=== PATIENT | female | born 1950 | race African-American/Black ===

== ENCOUNTER → 2017-04-23 | Outpatient (CLI) | payer OTHER | END | disposition home or self-care (01) | LOC: US 07:30 | DX: N28.89 Other specified disorders of kidney and ureter (principal); R80.8 Other proteinuria | CPT/HCPCS: 76770 ==

== ENCOUNTER 2018-05-07 08:16 | Emergency (ER) | payer OTHER ==
[~2018-05-07] VITALS: Ht 160 cm; Wt 63.5 kg
[~2018-05-07 08:16] MED LIST: ALBU2.5V8 IH; ASPI-482 PO; ATOR40TA59 PO; FLUT1DIS3 IH; IPRA3AMP29 IH; LISI1TAB5 PO; OXYB5TAB7 PO; PANT40TA5 PO
[2018-05-07 08:20] VITALS: BP 150/69
--- NOTE | 2018-05-07 08:52 | RAD ---
4 view study left knee Clinical indications: Left knee pain after fall FINDINGS: No acute fracture or dislocation or osteolytic process is seen. No joint effusion is seen. IMPRESSION: No acute fracture. Electronically signed by: Dong Kellogg MD (05/07/2018 8:49 AM) [facility]
[2018-05-07] MEDS ORDERED: DICL50TA4 PO (09:23)
--- NOTE | 2018-05-07 09:23 | PHYS DOC ---
Past Medical History Past Medical History: COPD, Hypertension, Other Additional Past Medical Histor: overactive bladder Past Surgical History: Hysterectomy, Other Additional Past Surgical Histo: right foot surgery Alcohol Use: Occasionally Drug Use: None Adult General Chief Complaint Chief Complaint: KNEE INJURY HPI HPI Patient is a 68 year old female with history of hypertension, COPD, who presents to the ED today complaining of 10 out of 10 left knee pain that began yesterday after she fell at her friend's house landing on her left knee. Patient denies any loss of consciousness. She states her feet got tangled up prior to her falling. Patient describes the pain as throbbing and intermittent. She states the pain is worse on weight-bearing that she is able to ambulate with no difficulties. She states she has not taken anything for her pain. Review of Systems Review of Systems Constitutional: Denies fever or chills [] Musculoskeletal: Reports left knee pain Integument: Denies rash or skin lesions [] Neurologic: Denies headache, focal weakness or sensory changes All other systems were reviewed and found to be within normal limits, except as documented in this note. Allergies Allergies Allergies Coded Allergies Type Severity Reaction Last Updated Verified mirabegron Allergy Intermediate RASH 04/10/15 Yes Physical Exam Physical Exam Constitutional: Well developed, well nourished, no acute distress, non-toxic appearance. [] Skin: Warm, dry, no erythema, no rash. [] Back: No tenderness, no CVA tenderness. [] Extremities: Left knee with no obvious deformity. Slight bruising noted on the left lateral knee. Full range of motion to the left knee, no laxity, negative Kathryn sign, negative Salvador sign, negative anterior-posterior drawer sign. + 2 left pedal pulse. Cap refill less than 2 seconds left lower extremity. Sensation intact to the left lower extremity Neurologic: Alert and oriented X 3, normal motor function, normal sensory function, no focal deficits noted. [] Psychologic: Affect normal, judgement normal, mood normal. [] Current Patient Data Vital Signs Vital Signs Date Time Temp Pulse Resp B/P (MAP) Pulse Ox O2 Delivery O2 Flow Rate FiO2 05/07/18 08:20 98.0 98 17 150/69 (96) 98 Room Air 98.0 EKG EKG [] Radiology/Procedures Radiology/Procedures []PROCEDURE: KNEE LEFT 4V 4 view study left knee Clinical indications: Left knee pain after fall FINDINGS: No acute fracture or dislocation or osteolytic process is seen. No joint effusion is seen. IMPRESSION: No acute fracture. Electronically signed by: Juan Carlos Kellogg MD (05/07/2018 8:49 AM) [facility] DICTATED and SIGNED BY: JUAN CARLOS KELLOGG MD DATE: 05/07/18 0847 Course & Med Decision Making Course & Med Decision Making Pertinent Labs and Imaging studies reviewed. (See chart for details) This is a 68-year-old female patient presenting to the ED with left knee pain status post falling, left knee x-rays interpreted by radiologist are negative for any acute findings. Discharged with diclofenac. Ice elevation encouraged. Follow-up with orthopedic doctor in one week if pain continues. Dragon Disclaimer Dragon Disclaimer This electronic medical record was generated, in whole or in part, using a voice recognition dictation system. Departure Departure Impression: Primary Impression: Fall from standing Additional Impression: Contusion of left knee Disposition: HOME, SELF-CARE Condition: STABLE Referrals: ROJAS RUIZ PA-C (PCP) Follow-up with your own doctor in 1-2 weeks FIOR LIN MD follow up in 1 week Patient Instructions: Contusion, Qucm-ad-Jyft, Knee Pain, Txfj-ao-Wxtx Additional Instructions: You were evaluated in the emergency room for left knee pain. Ice elevate the extremity. Take the prescribed medication as needed for pain. Follow-up with your own doctor or the orthopedic doctor provided in one week. Scripts Diclofenac Sodium (DICLOFENAC SODIUM) 50 Mg Tablet.dr 1 TAB PO BID, #10 TAB 0 Refills Prov: TIFFANIE PENA APRN 05/07/18 Problem Qualifiers Primary Impression: Fall from standing Encounter type: initial encounter Qualified Codes: W19.XXXA - Unspecified fall, initial encounter Additional Impression: Contusion of left knee Encounter type: initial encounter Qualified Codes: S80.02XA - Contusion of left knee, initial encounter TIFFANIE PENA APRN May 07, 2018 09:23
== END 2018-05-07 09:30 | disposition home or self-care (01) ==
LOC: ER 08:16
DX: S80.02XA Contusion of left knee, initial encounter (principal); I10 Essential (primary) hypertension; J44.9 Chronic obstructive pulmonary disease, unspecified; Z90.710 Acquired absence of both cervix and uterus; Z88.8 Allergy status to other drugs, medicaments and biological substances; W18.39XA Other fall on same level, initial encounter; Y93.89 Activity, other specified; Y92.89 Other specified places as the place of occurrence of the external cause; Y99.8 Other external cause status
CPT/HCPCS: 73564; 99283

== ENCOUNTER → 2018-06-24 | Outpatient (CLI) | payer OTHER ==
[~2018-06-24] MED LIST changes: +AMLO10TA8 PO; +DICL50TA4 PO; +ICOS1CAP PO; +METF10007 PO; +METO25TA4 PO; +PRAS10TA9 PO; +REGADENOSON 0.4 MG/5 ML DISP.SYRIN. IV ONE
--- NOTE | 2018-06-24 13:23 | RAD ---
MR#: [id number] Date of Study: 06/24/2018 Ordering Physician: LETICIA KAMARA, Referring Physician: JACK SMALLS Tech: RT Chong (R) (N) APPROVED REPORT Test Type: Pharmacological Stress Nurse/Tech: Kerrie Erickson RN Test Indications: ventricular arrythmia Cardiac History: Hypertension, smoker, Diabetes Medications: See Electronic Medical Record Medical History: See Electronic Medical Record Resting ECG: NSR Resting Heart Rate: 80 bpm Resting Blood Pressure: 119/65mmHg Pretest Chest Pain: NoneNo chest pain Nurse/Tech Notes LS clear, S1S2 Consent: The procedure was explained to the patient in lay terms. Informed consent was witnessed. Christiano eout was entered into [employer]. History and Stress Test performed by Kerrie Erickson RN Pharm. Details Pharmacologic stress testing was performed using 0.4mg per 5ml of regadenoson given intravenously ove r 7-10 seconds. Stress Symptoms Flushing, Dyspnea, Abdominal pain, starting 10 to 5, to 2 POST EXERCISE Reason for Termination: Infusion complete Max HR: 118 bpm Max Blood Pressure: 135/65mmHg Chest Pain: No. Arrhythmia: No. ST Change: No. INTERPRETATION Stress EKG Conclusion: Baseline EKG showed sinus rhythm. No ischemic changes at peak stress. No arr hythmias. Imaging Protocol IMAGE PROTOCOL: Rest Tc-99m/stress Tc-99m 1 day Rest: Stress: Viability: Radiopharm.Tc99m ImubdgxidSm27s Sestamibi Dose10.5mCi 33mCi Duration 13min. 13min. Img Date 06/24/2018 06/24/2018 Inj-Img Moza55nxu. 60min. Rest Admin Site:IV - Right HandAdministrator:RT Silvio Schwarz)(N) Stress Admin Site: IV - Right HandAdministrator: AVINASH Tinsley STRESS DATA End Diast. Vol.44.0mlLVEDV index BSA27.0ml End Syst. Vol.2.0mlLVESV index BSA1.0ml Myocardial Mass83.0gEject. Bxyslvob54.0% Stress Scores Regional WT0.00Summed WT0.00 Regional WM0.00Summed WM0.00 Study quality was good. Left Ventricular size was Normal at Rest and Stress. Lung uptake was . Left Ventricular ejection fraction is >80%. The rest and stress images show normal perfusion, normal contraction and thickening. LV Perf. Quant 17 Seg. SSS0.00 17 Seg. SRS0.00 17 Seg. SDS0.00 Stress Defect Extent (% LAD)0.00Rest Defect Extent (% LAD)0.00Rev. Defect Extent (% LAD)0.00 Stress Defect Extent (% LCX) 0.00Rest Defect Extent (% LCX)0.00Rev. Defect Extent (% LCX)0.00 Stress Defect Extent (% RCA)0.00Rest Defect Extent (% RCA)0.00Rev. Defect Extent (% RCA)0.00 Stress Defect Extent (% JOSEPH)0.00Rest Defect Extent (% JOSEPH)0.00Rev. Defect Extent (% JOSEPH)0.00 Conclusion 1. Regadenoson cardioisotope stress test did not show any evidence of ischemia or infarct. 2. Normal left ventricular systolic function with ejection fraction calculated at >80%. 3. Low risk for cardiac events. Signed by : Brock Guadalupe, Electronically Approved : 06/24/2018 13:23:08
== END | disposition home or self-care (01) ==
LOC: NM 08:02
PROVIDERS: ATTEND Nurse Practitioner
DX: I49.9 Cardiac arrhythmia, unspecified (principal); I10 Essential (primary) hypertension; E11.9 Type 2 diabetes mellitus without complications; Z87.891 Personal history of nicotine dependence
CPT/HCPCS: 78452; 93017; A9500; J2785

== ENCOUNTER → 2018-07-23 | Outpatient (CLI) | payer OTHER ==
[~2018-07-23] MED LIST changes: -REGADENOSON 0.4 MG/5 ML DISP.SYRIN. IV ONE
--- NOTE | 2018-07-23 09:48 | CARD ---
MR#: [id number] Date of Study: 07/23/2018 Ordering Physician: MOR MESA, Referring Physician: MOR MESA Tech: Lydia Gilmore RDCS APPROVED REPORT EXAM: Two-dimensional and M-mode echocardiogram with Doppler and color Doppler. Other Information Quality : AverageHR: 70bpm Rhythm : NSRTechnically limited study due to smoking. INDICATION Syncope 2D DIMENSIONS RVDd2.9 (2.9-3.5cm)Left Atrium(2D)3.2 (1.6-4.0cm) IVSd1.1 (0.7-1.1cm)Aortic Root(2D)2.9 (2.0-3.7cm) LVDd3.9 (3.9-5.9cm)LVOT Diameter1.9 (1.8-2.4cm) PWd0.9 (0.7-1.1cm)LVDs2.3 (2.5-4.0cm) FS (%) 41.2 %SV48.8 ml LVEF(%)70.0 (>50%) Aortic Valve AoV Peak Clifford.103.4cm/sAoV VTI20.7cm AO Peak GR.4.3mmHgLVOT Peak Clifford.99.6cm/s AO Mean GR.2mmHgAVA (VMAX)2.86cm2 PATRICK (VTI)2.90cm2 Mitral Valve MV E Gqiabbhg01.4cm/sMV DECEL VBJE016zz MV A Knvekkei039.6cm/sE/A Ratio0.8 Pulmonary Valve PV Peak Hzhzivvd51.3cm/s Tricuspid Valve TR P. Rgeyjfam779xz/sRAP YGHNKLIP6zmGi TR Peak Gr.65xzGvSSMS44muTn LEFT VENTRICLE The left ventricle is normal size. There is normal left ventricular wall thickness. The left ventricu lar systolic function is normal and the ejection fraction is within normal range. The Ejection Fracti on is 65-70%. There is normal LV segmental wall motion. Transmitral Doppler flow pattern is Grade I-a bnormal relaxation pattern. RIGHT VENTRICLE The right ventricle is normal size. There is normal right ventricular wall thickness. The right ventr icular systolic function is normal. ATRIA The left atrium size is normal. The right atrium size is normal. The interatrial septum is intact wit h no evidence for an atrial septal defect or patent foramen ovale as noted on 2-D or Doppler imaging. AORTIC VALVE The aortic valve is normal in structure and function. The aortic valve is trileaflet. Doppler and Col or Flow revealed no significant aortic regurgitation. There is no significant aortic valvular stenosi s. There is no aortic valvular vegetation. MITRAL VALVE The mitral valve is normal in structure and function. There is no evidence of mitral valve prolapse. There is no mitral valve stenosis. Doppler and Color-flow revealed trace mitral regurgitation. TRICUSPID VALVE The tricuspid valve is normal in structure and function. Doppler and Color Flow revealed trace tricus pid regurgitation. The PA pressure was estimated at 29 mmHg. There is no tricuspid valve prolapse or vegetation. There is no tricuspid valve stenosis. PULMONIC VALVE The pulmonic valve is not well visualized. GREAT VESSELS The aortic root is normal in size. The ascending aorta is normal in size. The IVC is normal in size a nd collapses >50% with inspiration. PERICARDIAL EFFUSION There is no evidence of significant pericardial effusion. Critical Notification Critical Value: No <Conclusion> The left ventricular systolic function is normal and the ejection fraction is within normal range. Th e Ejection Fraction is 65-70%. There is normal LV segmental wall motion. Technically difficult study Signed by : Aris Ramirez, Electronically Approved : 07/23/2018 09:47:55
== END | disposition home or self-care (01) ==
LOC: ECHO 08:35
PROVIDERS: ATTEND Internal Medicine Cardiovascular Disease
DX: R55 Syncope and collapse (principal)
CPT/HCPCS: 93306

== ENCOUNTER 2018-08-13 06:50 | Outpatient (CLI) | payer OTHER ==
[2018-08-13] VITALS (21 sets, daily range): BP systolic 105–144; BP diastolic 59–89
[~2018-08-13] VITALS: Ht 160 cm; Wt 56.2 kg
[~2018-08-13 06:50] MED LIST changes: -AMLO10TA8 PO; -ICOS1CAP PO; -METF10007 PO; -METO25TA4 PO; -PANT40TA5 PO; +PANT40TA77 PO; -PRAS10TA9 PO
[2018-08-13 07:25] LABS: HEMATOCRIT 38.2 % (36.0-47.0); HEMOGLOBIN 12.6 g/dL (12.0-15.5); RED BLOOD COUNT 4.1 x10^6/uL (3.50-5.40); RED CELL DISTRIBUTION WIDTH 13.1 % (11.5-14.5)
[2018-08-13 07:39] LABS: PROTHROMBIN TIME PATIENT 11.5 SEC (11.7-14.0)
[2018-08-13] MEDS ORDERED: IODIXANOL 320 MG/ML 100 ML VIAL. ONE (07:44)
[2018-08-13] MEDS ORDERED: LIDOCAINE 1% PF 2 ML VIAL. ONE (07:44)
[2018-08-13] MEDS ORDERED: METF10007 PO (07:47)
[2018-08-13 07:53] LABS: CALCIUM 9.9 mg/dL (8.5-10.1); CREATININE 0.8 mg/dL (0.6-1.0); GFR 86.8; POTASSIUM 3.9 mmol/L (3.5-5.1)
[2018-08-13] MEDS ORDERED: ICOS1CAP PO (07:54)
[2018-08-13] MEDS ORDERED: METO25TA4 PO (07:54)
[2018-08-13] MEDS ORDERED: AMLO10TA8 PO (07:54)
[2018-08-13] MEDS ORDERED: MIDAZOLAM HCL/PF 2 MG/2 ML VIAL. ONE (08:38)
[2018-08-13] MEDS ORDERED: fentaNYL PF VIAL 100 MCG/2 ML VIAL ONE (08:38)
[2018-08-13] MEDS ORDERED: HEPARIN for IV BOLUS 10,000 UNIT/10 ML VIAL. ONE (08:38)
[2018-08-13] MEDS ORDERED: VERAPAMIL 5 MG/2 ML VIAL. ONE (08:38)
[2018-08-13] MEDS ORDERED: NITROGLYCERIN 200 MCG/2 ML SYRINGE FOR CATH/VASC LAB. ONE (08:39)
[2018-08-13] MEDS ORDERED: BIVALIRUDIN 250 MG VIAL. IV ONE ×2 (08:58→09:15)
[2018-08-13] MEDS ORDERED: IODIXANOL 320 MG/ML 100 ML VIAL. IART ONE (09:15)
[2018-08-13] MEDS ORDERED: HEPARIN for IV BOLUS 10,000 UNIT/10 ML VIAL. IART ONE (09:15)
[2018-08-13] MEDS ORDERED: NITROGLYCERIN 200 MCG/2 ML SYRINGE FOR CATH/VASC LAB. IART ONE (09:15)
[2018-08-13] MEDS ORDERED: MIDAZOLAM HCL/PF 2 MG/2 ML VIAL. IV ONE (09:15)
[2018-08-13] MEDS ORDERED: fentaNYL PF VIAL 100 MCG/2 ML VIAL IV ONE (09:15)
[2018-08-13] MEDS ORDERED: VERAPAMIL 5 MG/2 ML VIAL. IART ONE (09:15)
[2018-08-13] MEDS ORDERED: LIDOCAINE 1% PF 2 ML VIAL. INJ ONE (09:15)
[2018-08-13] MEDS ORDERED: PRASUGREL 10 MG TABLET. PO ONE (09:15)
[2018-08-13] MEDS ORDERED: ASPIRIN 325 MG TABLET PO ONE (09:15)
[2018-08-13] MEDS ORDERED: ASPIRIN 325 MG TABLET ONE (09:17)
[2018-08-13] MEDS ORDERED: PRASUGREL 10 MG TABLET. ONE (09:18)
--- NOTE | 2018-08-13 09:23 | PDOC ---
MODERATE SEDATION ASSESSMENT RISKS/ALTERNATIVES Risks/Alternatives Risks and alternatives of this type of sedation and procedure discussed with: RISK/ALTERNATIVES: Patient H & P ON CHART H & P H & P on chart and reviewed for co-morbid conditions and appropriate labs. H&P ON CHART: Yes STATUS PREG STATUS ASSESSED: N/A MEDS/ALLERGIES REVIEWED Meds/Allergies Reviewed Medications and Allergies including time and route of recently administered narcotics and sedatives. MEDS/ALLERGIES REVIEWED: Yes ASA RATING ASA RATING: II AIRWAY ASSESSMENT Airway Assessment Airway patency, oral function limitations, presence of caps, crowns, dentures, partials, and ability to extend neck assessed. AIRWAY ASSESSMENT: Yes MALLAMPATI SCORE MALLAMPATI SCORE: II PRE-SEDATION ASSESSMENT PRE-SEDATION ASSESSMENT: Yes MOR MESA MD Aug 13, 2018 09:23
[2018-08-13] MEDS ORDERED: IV 1/2 NORMAL SALINE 1,000 ML IV SCH (09:24)
[2018-08-13] MEDS ORDERED: ACETAMINOPHEN 325 MG TABLET. PO PRN (09:30)
[2018-08-13] MEDS ORDERED: NITROGLYCERIN SUBLINGUAL 0.4 MG BOTTLE OF 25. SL PRN (09:30)
[2018-08-13] MEDS ORDERED: 0.9 % SODIUM CHLORIDE 10 ML DISP.SYRIN. IV PRN (09:30)
--- NOTE | 2018-08-13 09:37 | CARD ---
MR#: [id number] Date of Study: 08/13/2018 Ordering Physician: MOR MESA, Referring Physician: MOR MESA Tech: RT Jovani (R) APPROVED REPORT Technologist: Winnie Perez RT (R) Procedure(s) performed: 1. Left heart catheterization, selective coronary angiography and left ventr iculography via right transradial approach 2. Successful PCI/drug eluting stent placement to right coronary artery Fluoro time: 8.1 minutes Dose: 78Nzue7 Contrast: 120 cc Moderate sedation: 25 Minutes INDICATION The indication(s) include : Ventricular tachycardia. CSHA Clinical Frailty Scale CSHA Clinical Frailty Scale: Well Heart Failure Heart Failure: No PROCEDURE NARRATIVE After explaining the risks, benefits and alternative options, informed consent was obtained from lars ent. Patient was brought to the cardiac [facility] and right wrist was prepped and draped in the usual fashion after confirming a positive modified George's test. Arterial access was obtained in the righ t radial artery and a 6 Venezuelan sheath was inserted. 6 Venezuelan Fred catheter was used to perform artemio ective angiography of the left and right coronary arteries. 6 Venezuelan pigtail catheter was used to pe rform left ventriculography. The following findings were noted. FINDINGS 1. Hemodynamics: Left ventricular end-diastolic pressure of 20 mmHg. No pullback gradient across th e aortic valve. 2. Left ventriculography: Hyperdynamic left ventricle systolic function with ejection fraction great er than 80%. No significant mitral regurgitation seen. 3. Coronary angiography: a. The left main coronary artery arose from the left sinus of Valsalva, gave rise to the left anteri or descending and left circumflex arteries and did not show any significant stenosis. b. The left anterior descending artery did not show any significant stenosis. c. The left circumflex artery did not show any significant stenosis. d. The right coronary artery was a large and dominant vessel arising from the right sinus of Valsalv a that showed 80% stenosis in the mid to distal segment. INTERVENTION The right coronary artery was engaged with a 6 Venezuelan JR4 guide catheter and the stenosis in the mid to distal segment was crossed with a 0.014 inch Diet TV Pro water guidewire. This was predilated with a 3.0 x 12 mm trek balloon following which this was successfully treated with a 3.5 x 15 mm Xience Alp ine drug-eluting stent. Follow-up angiography showed resolution of the stenosis to 0% with ELMER-3 dis anthony flow. Patient tolerated the procedure well. Hemostasis was achieved using TR band. There were no immediate complications. ELMER Flow ELMER Flow (Pre-Intervention): ELMER-3 ELMER Flow (Post-Intervention): ELMER-3 Conclusion 1. Severe single-vessel coronary disease involving right coronary artery 2. Successful PCI/drug eluting stent placement to the right coronary artery 3. Hyperdynamic left ventricle systolic function with ejection fraction greater than 80% Recommendations 1. Aspirin 325 mg daily for one month followed by 81 mg daily 2. Effient 10 mg daily for preferably one year 3. Cardiovascular risk factor modification Signed by : Mor Mesa, Electronically Approved : 08/13/2018 09:36:26
--- NOTE | 2018-08-13 11:52 | NUR ---
Effient 10mg po daily #30 called into [facility] [address] Patient educated the need to take this medicine daily to cardiac stent that was placed today. Patient verbalized understanding.
[2018-08-13] MEDS ORDERED: PRAS10TA9 PO (13:55)
--- NOTE | 2018-08-13 14:24 | NUR ---
Discharge Note: MAEVE COOK Discharge instructions and discharge home medications reviewed with Patient and a copy given. All questions have been answered and understanding verbalized. The following instructions and handouts were given: moderate sedation and radial site care, emphasized importance of picking up Effient prescription and holding Metformin until Thursday Discontinued lines and drains: Peripheral IV intact. Patient discharged to Home or Self Care withSignificant Othervia Ambulated Patient's prescription for Effient had to be called into [facility] [address] because [facility] didn't have the medication right now.
[2018-08-14] MEDS ORDERED: ASPIRIN ENTERIC COATED 325 MG TABLET.DR. PO SCH (08:00)
[2018-08-14] MEDS ORDERED: PRASUGREL 10 MG TABLET. PO SCH (08:00)
== END 2018-08-13 14:00 | disposition home or self-care (01) ==
LOC: CCL 06:50
PROVIDERS: ATTEND Internal Medicine Cardiovascular Disease
DX: I25.10 Atherosclerotic heart disease of native coronary artery without angina pectoris (principal); J44.9 Chronic obstructive pulmonary disease, unspecified; I10 Essential (primary) hypertension; E78.5 Hyperlipidemia, unspecified; F17.210 Nicotine dependence, cigarettes, uncomplicated; E11.9 Type 2 diabetes mellitus without complications; I47.2 Ventricular tachycardia; Z79.82 Long term (current) use of aspirin; Z87.39 Personal history of other diseases of the musculoskeletal system and connective tissue; Z90.710 Acquired absence of both cervix and uterus; Z90.722 Acquired absence of ovaries, bilateral; Z72.89 Other problems related to lifestyle; Z79.84 Long term (current) use of oral hypoglycemic drugs
CPT/HCPCS: 36415; 80048; 85027; 85610; 93458; 99152; 99153; C1725; C1769; C1874; C1887; C1892; C9600; J0583; J1644; J2250; J3010; J3490; Q9967; 92928; C1713

== ENCOUNTER → 2018-11-12 | Outpatient (CLI) | payer OTHER, MEDICARE ==
[2018-08-13 13:50] VITALS: BP 123/67
[~2018-11-12] MED LIST changes: +AMLO10TA8 PO; +ICOS1CAP PO; +LISI1TAB19 PO; -LISI1TAB5 PO; +METF10007 PO; +METO25TA4 PO; +PRAS10TA9 PO
[2018-11-12 10:06] LABS: BASO # 0.1 x10^3/uL (0.0-0.2); BASO % 1 % (0-3); EOS # 0.2 x10^3/uL (0.0-0.7); EOS % 2 % (0-3); HEMATOCRIT 34.4 % (36.0-47.0); HEMOGLOBIN 11.5 g/dL (12.0-15.5); LYMPH # 2.5 x10^3/uL (1.0-4.8); LYMPH % 27 % (24-48); MEAN CORPUSCULAR HEMOGLOBIN 32 pg (25-35); MEAN CORPUSCULAR HGB CONC 33 g/dL (31-37); MEAN CORPUSCULAR VOLUME 95 fL (79-100); MONO # 0.6 x10^3/uL (0.0-1.1); MONO % 6 % (0-9); NEUT % 65 % (31-73); PLATELET COUNT 212 x10^3/uL (140-400); RED BLOOD COUNT 3.63 x10^6/uL (3.50-5.40); RED CELL DISTRIBUTION WIDTH 13.7 % (11.5-14.5); WHITE BLOOD COUNT 9.3 x10^3/uL (4.0-11.0)
[2018-11-12 10:24] LABS: ALBUMIN 3.9 g/dL (3.4-5.0); CALCIUM 9.4 mg/dL (8.5-10.1); CREATININE 0.9 mg/dL (0.6-1.0); GFR 75.8; PHOSPHORUS 4.6 mg/dL (2.6-4.7); POTASSIUM 4.7 mmol/L (3.5-5.1)
[2018-11-13 02:08] LABS: CREATININE PTH 0.85 mg/dL (0.57-1.00); PHOSPHORUS PTH 4.7 mg/dL (2.5-4.5); PTH INTACT 71 pg/mL (15-65)
== END | disposition home or self-care (01) ==
LOC: LAB 09:39
PROVIDERS: ATTEND Internal Medicine Nephrology
DX: I10 Essential (primary) hypertension (principal); R80.9 Proteinuria, unspecified; E11.21 Type 2 diabetes mellitus with diabetic nephropathy; Z72.0 Tobacco use
CPT/HCPCS: 36415; 80069; 83970; 85025

== ENCOUNTER 2019-03-05 09:42 | Emergency (ER) | payer OTHER, MEDICAID ==
[2018-08-13 13:50] VITALS: BP 123/67
[~2019-03-05] VITALS: Ht 160 cm; Wt 55.8 kg
[~2019-03-05 09:42] MED LIST changes: +OXYB5TAB10 PO; -OXYB5TAB7 PO
[2019-03-05] MEDS ORDERED: HYDR-3164 PO (10:34)
[2019-03-05] MEDS ORDERED: METH4TAB2 PO (10:34)
[2019-03-05] MEDS ORDERED: GABA300C18 PO (10:34)
--- NOTE | 2019-03-05 10:35 | PHYS DOC ---
Past Medical History Past Medical History: COPD, Hypertension, Other Additional Past Medical Histor: overactive bladder (TIFFANIE PENA APRN) Past Surgical History: Hysterectomy, Other Additional Past Surgical Histo: right foot surgery (TIFFANIE PENA APRN) Alcohol Use: Occasionally Drug Use: None (TIFFANIE PENA APRN) Adult General Chief Complaint Chief Complaint: SKIN PROBLEM HPI HPI Patient is a 68 year old female with history of COPD, hypertension, who presents to the ED today complaining of pain from shingles. She's had shingles for 4 weeks. Patient rates the pain as moderate. Denies anything specifically exacerbating or relieving the pain. Describes the pain as a burning sensation. (TIFFANIE PENA APRN) Review of Systems Review of Systems Constitutional: Denies fever or chills [] Musculoskeletal: Denies back pain or joint pain [] Integument: Reports pain to the flank region from shingles Neurologic: Denies headache, focal weakness or sensory changes [] All other systems were reviewed and found to be within normal limits, except as documented in this note. (TIFFANIE PENA APRN) Allergies Allergies Allergies Coded Allergies Type Severity Reaction Last Updated Verified mirabegron Allergy Intermediate RASH 04/10/15 Yes (MICHAEL ELIZABETH DO) Physical Exam Physical Exam Constitutional: Well developed, well nourished, no acute distress, non-toxic appearance. [] Abdomen: Bowel sounds normal, soft, no tenderness, no masses, no pulsatile masses. [] Skin: Elijah lesions noted on the left flank region on the left mid and lower abdomen consistent with healing shingles. No signs of infection. Back: No tenderness, no CVA tenderness. [] Extremities: No tenderness, no cyanosis, no clubbing, ROM intact, no edema. [] Neurologic: Alert and oriented X 3, normal motor function, normal sensory function, no focal deficits noted. [] Psychologic: Affect normal, judgement normal, mood normal. [] (TIFFANIE PENA APRN) Current Patient Data Vital Signs Vital Signs Date Time Temp Pulse Resp B/P (MAP) Pulse Ox O2 Delivery O2 Flow Rate FiO2 03/05/19 10:00 98.9 88 18 138/60 (86) 98 Room Air 98.9 (MICHAEL ELIZABETH DO) EKG EKG [] (TIFFANIE PENA APRN) Radiology/Procedures Radiology/Procedures [] (TIFFANIE PENA APRN) Course & Med Decision Making Course & Med Decision Making Pertinent Labs and Imaging studies reviewed. (See chart for details) This is a 68-year-old female patient presented to the ED today with pain from shingles. She's had shingles for 4 weeks. Lesions appear to be improving she was given prescription for gabapentin , Medrol Dosepak and hydrocodone. Follow-up with [facility] in 1-2 weeks. (TIFFANIE PENA APRN) Dragon Disclaimer Dragon Disclaimer This electronic medical record was generated, in whole or in part, using a voice recognition dictation system. (TIFFANIE PENA APRN) Departure Departure Impression: Primary Impression: Acute pain associated with herpes zoster Disposition: HOME, SELF-CARE Condition: STABLE Referrals: UNKNOWN PCP NAME (PCP) Follow-up with your doctor on March 12 as scheduled Patient Instructions: Shingles, Debd-dx-Whlj Additional Instructions: You were evaluated in the emergency room for shingles pain. This is not unusual. This pain can last for weeks. Use the prescribed medications as ordered and follow-up with your doctor on March 12 as scheduled. Scripts Hydrocodone/Apap 5-325 (NORCO 5-325 TABLET) 1 Each Tablet 1 TAB PO Q6HRS, #30 TAB Prov: TIFFANIE PENA APRN 03/05/19 Methylprednisolone (MEDROL) 4 Mg Tab.ds.pk 1 PKG PO UD, #1 PKG Prov: TIFFANIE PENA APRN 03/05/19 Gabapentin (GABAPENTIN ) 300 Mg Capsule 300 MG PO TID for NEUROGENIC PAIN, #30 CAP Prov: TIFFANIE PENA APRN 03/05/19 Attending Signature Attending Signature I have reviewed the PA/[facility]URB[facility] ROOM ATTENDANT's note and plan of care. I was available for consultation as needed during the patient's visit in the emergency department. I agree with the clinical impression, plan, and disposition. (MICHAEL ELIZABETH DO) TIFFANIE PENA APRN Mar 05, 2019 10:35 MICHAEL ELIZABETH DO Mar 05, 2019 17:42
== END 2019-03-05 10:52 | disposition home or self-care (01) ==
LOC: ER 09:42
DX: B02.8 Zoster with other complications (principal); R10.30 Lower abdominal pain, unspecified; I10 Essential (primary) hypertension; J44.9 Chronic obstructive pulmonary disease, unspecified; Z90.710 Acquired absence of both cervix and uterus; Z88.8 Allergy status to other drugs, medicaments and biological substances
CPT/HCPCS: 99283

== ENCOUNTER → 2019-09-08 | Outpatient (CLI) | payer OTHER, MEDICAID ==
[2019-03-05 10:00] VITALS: BP 138/60
[~2019-09-08] MED LIST changes: +GABA300C18 PO; +HYDR-3164 PO; -LISI1TAB19 PO; +LISI1TAB37 PO; +METH4TAB2 PO
--- NOTE | 2019-09-08 12:18 | CARD ---
MR#: [id number] Date of Study: 09/08/2019 Ordering Physician: MOR MESA, Referring Physician: MOR MESA, Tech: Malika Peoplesantonella APPROVED REPORT EXAM: Two-dimensional and M-mode echocardiogram with Doppler and color Doppler. Other Information Quality : AverageHR: 64bpm INDICATION COPD Cardiac Disease: CAD RISK FACTORS Hypertension Hyperlipidemia Diabetes Smoking 2D DIMENSIONS RVDd3.3 (2.9-3.5cm)Left Atrium(2D)2.9 (1.6-4.0cm) IVSd0.8 (0.7-1.1cm)Aortic Root(2D)3.0 (2.0-3.7cm) LVDd4.0 (3.9-5.9cm)LVOT Diameter1.9 (1.8-2.4cm) PWd1.1 (0.7-1.1cm)LVDs2.2 (2.5-4.0cm) FS (%) 45.0 %SV52.7 ml LVEF(%)76.9 (>50%) Aortic Valve AoV Peak Clifford.124.9cm/sAoV VTI25.3cm AO Peak GR.6.2mmHgLVOT Peak Clifford.114.9cm/s LVOT VTI 25.07cmAO Mean GR.3mmHg PATRICK (VMAX)2.36wj7NAC (VTI)2.72cm2 Mitral Valve MV E Mimszdsg50.0cm/sMV DECEL ALXO700pa MV A Zsidvfkv75.9cm/sMV E Mean Gr.2mmHg MV TVX82saR/A Ratio0.9 MVA (PHT)3.27cm2 TDI E/Lateral E'8.4E/Medial E'11.8 Pulmonary Valve PV Peak Pzfwkrlg59.2cm/sPV Peak Grad.3mmHg Tricuspid Valve TR P. Mguzrvdy105si/sRAP ZYSOEVQA0ahBe TR Peak Gr.88fnGhBHYM80wzRh Pulmonary Vein S1 Pcaneoqa57.3cm/sD2 Fcldztzk12.4cm/s PVa zrykwbzd86hcio LEFT VENTRICLE The left ventricle is normal size. There is borderline concentric left ventricular hypertrophy. The l eft ventricular systolic function is normal. The Ejection Fraction is 55-60%. There is normal LV segm ental wall motion. Transmitral Doppler flow pattern is Grade I-abnormal relaxation pattern. RIGHT VENTRICLE The right ventricle is normal size. There is normal right ventricular wall thickness. The right ventr icular systolic function is normal. ATRIA The left atrium size is normal. The right atrium size is normal. The interatrial septum is intact wit h no evidence for an atrial septal defect or patent foramen ovale as noted on 2-D or Doppler imaging. AORTIC VALVE The aortic valve is thickened but opens well. Doppler and Color Flow revealed no significant aortic r egurgitation. There is no significant aortic valvular stenosis. Calculated aortic valve area is 2.65 cm2 with maximum pressure gradient of 8 mmHg and mean pressure gradient of 4 mmHg. MITRAL VALVE The mitral valve is normal in structure and function. There is no evidence of mitral valve prolapse. There is no mitral valve stenosis. Doppler and Color-flow revealed trace mitral regurgitation. TRICUSPID VALVE The tricuspid valve is normal in structure and function. Doppler and Color Flow revealed trace tricus pid regurgitation with an estimated PAP of 30 mmHg. There is no tricuspid valve stenosis. PULMONIC VALVE The pulmonic valve is not well visualized. Doppler and Color Flow revealed trace pulmonic valvular re gurgitation. GREAT VESSELS The aortic root is normal in size. The IVC is normal in size and collapses >50% with inspiration. PERICARDIAL EFFUSION There is no evidence of significant pericardial effusion. Critical Notification Critical Value: No <Conclusion> The left ventricular systolic function is normal. The Ejection Fraction is 55-60%. There is normal LV segmental wall motion. Trace mitral regurgitation. Trace tricuspid regurgitation with an estimated PAP of 30 mmHg. There is no evidence of significant pericardial effusion. Signed by : Mor Mesa, Electronically Approved : 09/08/2019 12:17:53
== END | disposition home or self-care (01) ==
LOC: ECHO 09:39
PROVIDERS: ATTEND Internal Medicine Cardiovascular Disease
DX: I25.10 Atherosclerotic heart disease of native coronary artery without angina pectoris (principal); I51.7 Cardiomegaly; E11.9 Type 2 diabetes mellitus without complications; F17.200 Nicotine dependence, unspecified, uncomplicated
CPT/HCPCS: 93306

== ENCOUNTER → 2020-02-14 | Outpatient (CLI) | payer OTHER, MEDICAID ==
[2019-03-05 10:00] VITALS: BP 138/60
[~2020-02-14] MED LIST changes: +AMLO-187 PO; -AMLO10TA8 PO
--- NOTE | 2020-02-14 11:29 | KCIC ---
EXAM: KNEE LEFT 3V 02/14/2020 12:00 AM CLINICAL INDICATION:Acute left anterior knee pain, fall 3 weeks ago COMPARISON:Left knee radiograph 05/07/2018 TECHNIQUE:3 views of the left knee FINDINGS:No acute fracture. Alignment is normal. Joint spaces are maintained. No joint effusion or focal soft tissue abnormality. IMPRESSION:No acute osseous abnormality. Electronically signed by: Sonia Hawkins MD (02/14/2020 11:26 AM) [id number]
== END ==
LOC: KCIC 10:27
PROVIDERS: ATTEND Family Medicine
DX: M25.562 Pain in left knee (principal)
CPT/HCPCS: 73562

== ENCOUNTER → 2020-02-20 | Outpatient (CLI) | payer OTHER, MEDICAID ==
[2019-03-05 10:00] VITALS: BP 138/60
--- NOTE | 2020-02-20 11:08 | KCIC ---
MRI left knee without contrast dated 02/20/2020. No comparison available. CLINICAL INDICATION: Left knee pain. TECHNIQUE: Routine multiplanar multisequence MR imaging left knee was performed. No contrast administered. FINDINGS: Bone marrow signal is homogeneous. No marrow edema. Mild tricompartmental hypertrophic changes. Mild thinning and surface irregularity of the articular cartilage. No significant joint effusion. No loose body. Tiny popliteal cyst. Anterior cruciate and posterior cruciate ligaments intact. Medial and lateral collateral complexes in tact. The iliotibial band, popliteus tendon and pes anserine complex within normal limits. Quadriceps and patellar tendon are intact. No abnormality of the medial or lateral retinaculum. Both menisci are normal in morphology and signal. No articular surface tear or para meniscal cyst. IMPRESSION: 1. No evidence of internal derangement. 2. Mild tricompartmental degenerative change and chondromalacia. 3. Small joint effusion and tiny popliteal cyst. Electronically signed by: Santi Carolina MD (02/20/2020 11:06 AM) [id number]
== END ==
LOC: KCIC MRI 09:40
PROVIDERS: ATTEND Family Medicine
DX: M17.12 Unilateral primary osteoarthritis, left knee (principal); M71.22 Synovial cyst of popliteal space [Baker], left knee; M25.462 Effusion, left knee; M94.262 Chondromalacia, left knee
CPT/HCPCS: 73721

== ENCOUNTER → 2020-03-21 | Outpatient (CLI) | payer OTHER, MEDICAID ==
[2019-03-05 10:00] VITALS: BP 138/60
[~2020-03-21] MED LIST changes: +REGADENOSON 0.4 MG/5 ML DISP.SYRIN. IV ONE
--- NOTE | 2020-03-22 08:20 | RAD ---
MR#: [id number] Date of Study: 03/21/2020 Ordering Physician: MOR MESA, Referring Physician: JACK CASTANEDA Tech: Sirisha Aparicio RT (R) (N) APPROVED REPORT Test Type: Pharmacological Stress Nurse/Tech: Junior Camacho RN Test Indications: CAD Cardiac History: Cardiac Stent in 2018, HTN, See EMR. Medications: See EMR. Medical History: DM, Asthma/COPD, Smoker, See EMR. Resting ECG: SR Resting Heart Rate: 73 bpm Resting Blood Pressure: 141/77mmHg Pretest Chest Pain: No chest pain Nurse/Tech Notes Lungs with crackles throughout, Heart tones regular. Consent: The procedure was explained to the patient in lay terms. Informed consent was witnessed. Christiano eout was entered into [employer]. History and Stress Test performed by PELON Castro, SARAH (R) (N) Pharm. Details Pharmacologic stress testing was performed using 0.4mg per 5ml of regadenoson given intravenously ove r 7-10 seconds. Stress Symptoms No chest pain or symptoms. POST EXERCISE Reason for Termination: Infusion complete Max HR: 106 bpm Max Blood Pressure: 153/92mmHg Blood Pressure response to exercise: Normal blood pressure response during stress. Heart Rate response to exercise: WNL Chest Pain: No. Arrhythmia: No. ST Change: No. INTERPRETATION Stress EKG Conclusion: No evidence of stress induced EKG changes. Imaging Protocol IMAGE PROTOCOL: Rest Tc-99m/stress Tc-99m 1 day Rest: Stress: Viability: Radiopharm.Tc99m [id number] Sestamibi Dose10.4mCi 30mCi Duration 15min. 10min. Img Date 03/21/2020 03/21/2020 Inj-Img [id number]. 60min. Rest Admin Site:IV - Right HandAdministrator:PELON Castro ARRT (Ki)(N) Stress Admin Site: IV - Right HandAdministrator: PELON Castro ARRT (Ki)(N) STRESS DATA End Diast. Vol.60.0mlAv. Heart Rate76.0bpm End Syst. Vol.13.0mlCO Index BSA0.0L/min Myocardial Nujo106.0gEject. Aeyegvcj68.0% Stress Rates Pk. Fill Rate3.84EDV/secLVtime Pk. Fill 178.32msec Pk. Empty Rate4.85ESV/secLVtime Pk. Xsqst344.70msec 1/3 Pk. Fill1.92EDV/sec Stress Scores Regional WT1.00Summed WT4.00 Regional WM0.00Summed WM1.00 The rest and stress images show normal perfusion, normal contraction and thickening. LV Perf. Quant 17 Seg. SSS0.00 17 Seg. SRS0.00 17 Seg. SDS0.00 Stress Defect Extent (% LAD)0.00Rest Defect Extent (% LAD)0.00Rev. Defect Extent (% LAD)0.00 Stress Defect Extent (% LCX) 0.00Rest Defect Extent (% LCX)0.00Rev. Defect Extent (% LCX)0.00 Stress Defect Extent (% RCA)0.00Rest Defect Extent (% RCA)0.00Rev. Defect Extent (% RCA)0.00 Stress Defect Extent (% JOSEPH)0.00Rest Defect Extent (% JOSEPH)0.00Rev. Defect Extent (% JOSEPH)0.00 Other Information Quality:Average Risk Assessment: Low Risk Conclusion 1. No evidence of EKG changes with stress testing. 2. Normal perfusion at stress/rest. 3. Low risk study. 4. EF > 60%. Signed by : Aris Ramirez, Electronically Approved : 03/22/2020 08:20:40
== END ==
LOC: NM 08:51
PROVIDERS: ATTEND Internal Medicine Cardiovascular Disease
DX: I25.10 Atherosclerotic heart disease of native coronary artery without angina pectoris (principal); I10 Essential (primary) hypertension; Z95.5 Presence of coronary angioplasty implant and graft
CPT/HCPCS: 78452; 93017; A9500; J2785

== ENCOUNTER → 2020-09-17 | Outpatient (CLI) | payer OTHER, MEDICAID ==
[2019-03-05 10:00] VITALS: BP 138/60
[~2020-09-17] MED LIST changes: -REGADENOSON 0.4 MG/5 ML DISP.SYRIN. IV ONE
--- NOTE | 2020-09-17 14:49 | CARD ---
MR#: [id number] Date of Study: 09/17/2020 Ordering Physician: MOR GUADALUPE, Referring Physician: MOR GUADALUPE, Tech: Malika Cruz [facility] [place] APPROVED REPORT EXAM: Two-dimensional and M-mode echocardiogram with Doppler and color Doppler. Other Information Quality : AverageHR: 74bpm INDICATION COPD Cardiac Disease: CAD RISK FACTORS Hypertension Hyperlipidemia Diabetes Smoking 2D DIMENSIONS RVDd3.1 (2.9-3.5cm)Left Atrium(2D)2.6 (1.6-4.0cm) IVSd0.8 (0.7-1.1cm)Aortic Root(2D)2.9 (2.0-3.7cm) LVDd4.3 (3.9-5.9cm)LVOT Diameter1.9 (1.8-2.4cm) PWd0.8 (0.7-1.1cm)LVDs2.4 (2.5-4.0cm) FS (%) 44.8 %SV63.6 ml LVEF(%)76.4 (>50%) Aortic Valve AoV Peak Clifford.135.1cm/sAoV VTI28.7cm AO Peak GR.7.3mmHgLVOT Peak Clifford.117.8cm/s LVOT VTI 28.36cmAO Mean GR.4mmHg PATRICK (VMAX)2.45nk2DMB (VTI)2.92cm2 Mitral Valve MV E Tchsnymq54.5cm/sMV DECEL ONRF014md MV A Reeeablt12.1cm/sMV GWF11wc E/A Ratio1.1MVA (PHT)3.36cm2 TDI E/Lateral E'11.3E/Medial E'9.9 Pulmonary Valve PV Peak Hmkddizh00.9cm/sPV Peak Grad.3mmHg Tricuspid Valve TR P. Hdjzpctu294ky/sTR Peak Gr.23mmHg Pulmonary Vein S1 Cpzoeuwo65.5cm/sD2 Kdtxvsft60.5cm/s PVa rcmxummp713csfq LEFT VENTRICLE The left ventricle is normal size. There is normal left ventricular wall thickness. The left ventricu lar systolic function is normal. The Ejection Fraction is 60-65%. There is normal LV segmental wall m otion. RIGHT VENTRICLE The right ventricle is normal size. There is normal right ventricular wall thickness. The right ventr icular systolic function is normal. ATRIA The left atrium size is normal. The right atrium size is normal. The interatrial septum is intact wit h no evidence for an atrial septal defect or patent foramen ovale as noted on 2-D or Doppler imaging. AORTIC VALVE The aortic valve is thickened but opens well. Doppler and Color Flow revealed no significant aortic r egurgitation. There is no significant aortic valvular stenosis. Calculated aortic valve area is 2.40 cm2 with maximum pressure gradient of 9 mmHg and mean pressure gradient of 5 mmHg. MITRAL VALVE The mitral valve is normal in structure and function. There is no evidence of mitral valve prolapse. There is no mitral valve stenosis. Doppler and Color-flow revealed trace mitral regurgitation. TRICUSPID VALVE The tricuspid valve is normal in structure and function. Doppler and Color Flow revealed trace tricus pid regurgitation with an estimated PAP of 30 mmHg. There is no tricuspid valve stenosis. PULMONIC VALVE The pulmonic valve is not well visualized. Doppler and Color Flow revealed trace pulmonic valvular re gurgitation. GREAT VESSELS The aortic root is normal in size. The ascending aorta is normal in size. The IVC is normal in size a nd collapses >50% with inspiration. PERICARDIAL EFFUSION There is no evidence of significant pericardial effusion. Critical Notification Critical Value: No <Conclusion> The left ventricular systolic function is normal. The Ejection Fraction is 60-65%. There is normal LV segmental wall motion. Trace mitral regurgitation. Trace tricuspid regurgitation with an estimated PAP of 30 mmHg. There is no evidence of significant pericardial effusion. Signed by : Mor Guadalupe, Electronically Approved : 09/17/2020 14:49:23
== END ==
LOC: ECHO 10:37
PROVIDERS: ATTEND Internal Medicine Cardiovascular Disease
DX: I25.10 Atherosclerotic heart disease of native coronary artery without angina pectoris (principal)
CPT/HCPCS: 93306

== ENCOUNTER → 2021-01-23 | Outpatient (CLI) | payer OTHER, MEDICAID ==
[2019-03-05 10:00] VITALS: BP 138/60
[2021-01-23 11:54] LABS: BASO % 1 % (0-3); EOS # 0.1 x10^3/uL (0.0-0.7); EOS % 1 % (0-3); HEMATOCRIT 38.1 % (36.0-47.0); HEMOGLOBIN 12.6 g/dL (12.0-15.5); LYMPH # 1.4 x10^3/uL (1.0-4.8); LYMPH % 20 % (24-48); MEAN CORPUSCULAR HEMOGLOBIN 31 pg (25-35); MEAN CORPUSCULAR HGB CONC 33 g/dL (31-37); MEAN CORPUSCULAR VOLUME 93 fL (79-100); MONO # 0.4 x10^3/uL (0.0-1.1); MONO % 5 % (0-9); NEUT # 5.3 x10^3/uL (1.8-7.7); NEUT % 74 % (31-73); PLATELET COUNT 191 x10^3/uL (140-400); RED BLOOD COUNT 4.09 x10^6/uL (3.50-5.40); RED CELL DISTRIBUTION WIDTH 13.9 % (11.5-14.5); WHITE BLOOD COUNT 7.2 x10^3/uL (4.0-11.0)
[2021-01-23 12:02] LABS: ALBUMIN 3.6 g/dL (3.4-5.0); CALCIUM 8.9 mg/dL (8.5-10.1); CHOLESTEROL/HDL RATIO 2.7; CREATININE 0.8 mg/dL (0.6-1.0); GFR 86.3; POTASSIUM 3.9 mmol/L (3.5-5.1); TOTAL BILIRUBIN 0.4 mg/dL (0.2-1.0); TOTAL PROTEIN 7.2 g/dL (6.4-8.2)
--- NOTE | 2021-01-23 12:21 | RAD ---
EXAM: Lumbar spine, 6 views. HISTORY: Radiculopathy. COMPARISON: None. FINDINGS: 6 views of the lumbar spine are obtained. There is lumbar levoscoliosis centered at L4. The re is lumbar hyperlordosis. There is multilevel endplate remodeling. There is facet arthropathy at th e lower lumbar levels. IMPRESSION: 1. Multilevel degenerative change, primarily the lower lumbar levels. 2. Mild scoliosis. Electronically signed by: Sirisha Bolivar MD (01/23/2021 12:19 PM) [id number]
--- NOTE | 2021-01-23 12:22 | RAD ---
EXAM: Cervical spine, 3 views. HISTORY: Radiculopathy. COMPARISON: None. FINDINGS: 3 views of the cervical spine are obtained. There is no listhesis. There is degenerative en dplate remodeling and disc space narrowing at C4-C5 and C5-C6. There is chronic mild decreased verteb ral body height at multiple levels, predominantly involving C4 and C5. There is no acute fracture. Th ere is multilevel facet arthropathy. IMPRESSION: 1. Multilevel degenerative change, predominantly at C4-C5 and C5-C6. 2. No acute osseous finding. Electronically signed by: Sirisha Bolivar MD (01/23/2021 12:20 PM) [id number]
[2021-01-24 01:08] LABS: HEMOGLOBIN A1C 6.2 % (4.8-5.6)
== END ==
LOC: LAB 11:25
PROVIDERS: ATTEND Family Medicine
DX: M47.22 Other spondylosis with radiculopathy, cervical region (principal); M47.26 Other spondylosis with radiculopathy, lumbar region; M41.86 Other forms of scoliosis, lumbar region; M48.02 Spinal stenosis, cervical region; I10 Essential (primary) hypertension; E78.5 Hyperlipidemia, unspecified; E11.9 Type 2 diabetes mellitus without complications
CPT/HCPCS: 36415; 72040; 72110; 80053; 80061; 83036; 85025

== ENCOUNTER → 2021-02-13 | Outpatient (CLI) | payer OTHER, MEDICAID ==
[2019-03-05 10:00] VITALS: BP 138/60
--- NOTE | 2021-02-14 09:49 | RAD ---
EXAM: LOWER EXTREMITY ARTERIAL DOPPLER SONOGRAM WITH ANKLE-BRACHIAL INDICES (JESUS). HISTORY: Bilateral leg pain and coronary artery disease. TECHNIQUE: Grayscale and Doppler sonographic evaluation of the lower extremities was performed and pr essure readings were assessed. FINDINGS: Right brachial pressure: 109 mmHg Right posterior tibial artery pressure: 136 mmHg Right dorsalis pedis artery pressure: 141 mmHg Right ankle JESUS: 1.27 Left brachial pressure: 111 mmHg Left posterior tibial artery pressure: 137 mmHg Left dorsalis pedis artery pressure: 139 mmHg Left ankle JESUS: 1.25 IMPRESSION: Normal bilateral ABIs. Electronically signed by: Sonia Hawkins MD (02/14/2021 9:46 AM) [id number]
== END ==
LOC: US 12:25
PROVIDERS: ATTEND Family Medicine
DX: I25.10 Atherosclerotic heart disease of native coronary artery without angina pectoris (principal); M79.604 Pain in right leg; M79.605 Pain in left leg
CPT/HCPCS: 93922

== ENCOUNTER → 2021-03-25 | Outpatient (CLI) | payer OTHER, MEDICAID ==
[2019-03-05 10:00] VITALS: BP 138/60
[~2021-03-25] MED LIST changes: +REGADENOSON 0.4 MG/5 ML DISP.SYRIN. IV ONE
--- NOTE | 2021-03-25 17:55 | RAD ---
MR#: [id number] Date of Study: 03/25/2021 Ordering Physician: MOR MESA, Referring Physician: JACK CASTANEDA Tech: RT Silvio Lebron) (N) APPROVED REPORT Test Type: Pharmacological Stress Nurse/Tech: Shruti Bowie RN Test Indications: Coronary Artery Disease Cardiac History: Hypertension, Diabetes,smoker,stent 2 yrs. ago Medications: See Electronic Medical Record Medical History: See Electronic Medical Record Resting ECG: SR Resting Heart Rate: 62 bpm Resting Blood Pressure: 130/72mmHg Pretest Chest Pain: No chest pain Nurse/Tech Notes S1,S2 and lungs diminished throughout. Consent: The procedure was explained to the patient in lay terms. Informed consent was witnessed. Christiano eout was entered into [employer]. History and Stress Test performed by RT Chong (Ki) (N) Pharm. Details Pharmacologic stress testing was performed using 0.4mg per 5ml of regadenoson given intravenously ove r 7-10 seconds. Stress Symptoms Dyspnea POST EXERCISE Reason for Termination: Infusion complete Target HR: No Max HR: 113 bpm 87% of Maximum Predicted HR: 129 bpm Max Blood Pressure: 148/70mmHg Blood Pressure response to exercise: Normal blood pressure response during stress. Heart Rate response to exercise: WNL Chest Pain: No. Arrhythmia: Yes. PVC INTERPRETATION Stress EKG Conclusion: The resting EKG shows a sinus rhythm with a small septal Q wave. The stress EKG shows no significant changes from baseline. No EKG evidence of stress-induced ischemia. Imaging Protocol IMAGE PROTOCOL: Rest Tc-99m/stress Tc-99m 1 day Rest: Stress: Viability: Radiopharm.Tc99m EecrmxogyBc51i Sestamibi Dose10.3mCi 32mCi Duration 15min. 15min. Img Date 03/25/2021 03/25/2021 Inj-Img [id number]. 60min. Rest Admin Site:IV - Right AntecubitalAdministrator:RT Silvio Schwarz)(N) Stress Admin Site: IV - Right AntecubitalAdministrator: RT Chong (R)(N) STRESS DATA End Diast. Vol.38.0mlAv. Heart Rate79.0bpm End Syst. Vol.4.0mlCO Index BSA0.0L/min Myocardial Mass78.0gEject. Cjrxladp51.0% Stress Rates Pk. Fill Rate4.77EDV/secLVtime Pk. Fill 229.64msec Pk. Empty Rate3.99ESV/secLVtime Pk. Eject88.72msec /3 Pk. Fill0.50EDV/sec Stress Scores Regional WT1.00Summed WT2.00 Regional WM0.00Summed WM0.00 LV Perfusion The stress scans showed no significant defects. The rest scans showed no significant defects. Nuclear imaging shows no reversible ischemia or infarct. Wall Motion LV systolic function is intact with an ejection fraction of greater than 70% and no regional wall mot ion abnormalities. LV Perf. Quant 17 Seg. SSS2.00 17 Seg. SRS1.00 17 Seg. SDS1.00 Stress Defect Extent (% LAD)0.00Rest Defect Extent (% LAD)0.00Rev. Defect Extent (% LAD)0.00 Stress Defect Extent (% LCX) 0.00Rest Defect Extent (% LCX)0.00Rev. Defect Extent (% LCX)0.00 Stress Defect Extent (% RCA)0.00Rest Defect Extent (% RCA)0.00Rev. Defect Extent (% RCA)0.00 Stress Defect Extent (% JOSEPH)0.00Rest Defect Extent (% JOSEPH)0.00Rev. Defect Extent (% JOSEPH)0.00 Conclusion 1. No EKG evidence of stress-induced ischemia. 2. Nuclear imaging shows no reversible ischemia or infarct. 3. Normal left ventricular systolic function with an ejection fraction of greater than 70%. 4. Low risk Lexiscan nuclear stress test. Signed by : John Muñoz MD Electronically Approved : 03/25/2021 17:55:13
== END ==
LOC: NM 08:18
PROVIDERS: ATTEND Internal Medicine Cardiovascular Disease
DX: I25.10 Atherosclerotic heart disease of native coronary artery without angina pectoris (principal)
CPT/HCPCS: 78452; 93017; A9500; J2785

== ENCOUNTER 2021-06-12 11:22 | Emergency (ER) | payer OTHER, MEDICAID ==
[~2021-06-12] VITALS: Ht 160 cm; Wt 58.6 kg
[~2021-06-12 11:22] MED LIST changes: -REGADENOSON 0.4 MG/5 ML DISP.SYRIN. IV ONE
[2021-06-12 11:25] VITALS: BP 126/68
[2021-06-12] MEDS ORDERED: ORPHENADRINE CITRATE 60 MG/2 ML VIAL. IM ONE (11:45)
[2021-06-12] MEDS ORDERED: KETOROLAC 30 MG/ML VIAL. IM ONE (11:45)
[2021-06-12] MEDS ORDERED: ORPH100T PO (13:00)
[2021-06-12] MEDS ORDERED: NAPR-695 PO (13:00)
--- NOTE | 2021-06-12 13:00 | PHYS DOC ---
Past Medical History Past Medical History: COPD, Hypertension, Other Additional Past Medical Histor: overactive bladder, SHINGLES Past Surgical History: Angioplasty, Hysterectomy, Other Additional Past Surgical Histo: right foot surgery, CARDIAC STENT Smoking Status: Current Every Day Smoker Alcohol Use: Occasionally Drug Use: None General Adult EDM: Chief Complaint: LOWER BACK PAIN OR INJURY HPI: HPI: Patient is a 71 year old female who presents with low back pain for the past few days after wearing wedge heels for an evening. Patient rates her pain severe on the right side greater than the left. Patient denies any traumatic injury. She denies saddle anesthesia, bowel or bladder incontinence, paresthesias in the lower extremities, IV drug use. Patient has no other complaints at this time. Review of Systems: Review of Systems: ROS negative or noncontributory except as mentioned in HPI. Heart Score: C/O Chest Pain: No Current Medications: Current Medications Medications (Trade) Dose Ordered Sig/Oralia Start Time Stop Time Status Last Admin Dose Admin Ketorolac Tromethamine (Toradol 30mg Vial) 30 mg 1X ONCE 06/12/21 11:45 06/12/21 11:50 DC 06/12/21 12:03 30 MG Orphenadrine Citrate (Norflex) 60 mg 1X ONCE 06/12/21 11:45 06/12/21 11:50 DC 06/12/21 12:03 60 MG Allergies: Allergies: Allergies Coded Allergies Type Severity Reaction Last Updated Verified mirabegron Allergy Intermediate RASH 04/10/15 Yes Physical Exam: PE: Constitutional: Well developed, well nourished, no acute distress, non-toxic appearance. HENT: Normocephalic, atraumatic, bilateral external ears normal, nose normal. Eyes: EOMI, conjunctiva normal, no discharge. Neck: Normal range of motion, no stridor. Skin: Warm, dry, no erythema, no rash. Back: No step-off, no midline/bony tenderness, lumbar/sacral paraspinal tenderness with underlying spasm right greater than left. Extremities: No tenderness, no cyanosis, no clubbing, ROM intact, no edema. Neurologic: Alert and oriented x4, normal motor function, normal sensory function, steady and symmetrical upright gait, no focal deficits noted. Current Patient Data: Vital Signs: Vital Signs Date Time Temp Pulse Resp B/P (MAP) Pulse Ox O2 Delivery O2 Flow Rate FiO2 4/6/22 11:25 98.6 82 18 126/68 (87) 96 Room Air 98.6 Course & Med Decision Making: Course & Med Decision Making Pertinent Labs and Imaging studies reviewed. (See chart for details) Abe Disclaimer: Abe Disclaimer: This electronic medical record was generated, in whole or in part, using a voice recognition dictation system. Departure Departure Impression: Primary Impression: Low back pain Qualified Codes: M54.50 - Low back pain, unspecified Disposition: HOME / SELF CARE / HOMELESS Condition: IMPROVED Referrals: Anthony MARSH MD (PCP) Patient Instructions: Back Exercises, [id number] Additional Instructions: EMERGENCY DEPARTMENT GENERAL DISCHARGE INSTRUCTIONS Thank you for coming to [facility] Emergency Department (ED) today and trusting us with you care. We trust that you had a positive experience in our Emergency Department. If you wish to speak to the department management, you may call the director at . YOUR FOLLOW UP INSTRUCTIONS ARE FOLLOWS: 1. Follow up with your primary care doctor. If you do not have a primary doctor, please ask for a resource list of physicians or clinics that may be able to assist you with follow up care. 2. The emergency provider has interpreted your imaging studies, if any were ordered. The radiology imaging technician also reviewed them. If there is a change in the findings, you will be notified in 48 hours when at all possible. 3. If a lab test or culture has been done, your results will be reviewed and you will be notified if you need a change in treatment. 4. Follow instructions verbalized to you and refer to the printouts if needed. ADDITIONAL INSTRUCTIONS AND INFORMATION: 1. Your care today has been supervised by a physician who is specially trained in emergency care. Many problems require more than one evaluation for a complete diagnosis and treatment. We recommend that you schedule your follow up appointment as recommended to ensure complete treatment of you illness or injury. If you are unable to obtain follow up care and continue to have a problem, or if your condition worsens, we recommend that you return to the ED. 2. We are not able to safely determine your condition over the phone nor are we able to give sound medical advice over the phone. For these safety reasons, if you call for medical advice we will ask you to come to the ED for further evaluation. 3. If you have any questions regarding these discharge instructions please call the ED at . SAFETY INFORMATION: In the interest of safety, wellness, and injury prevention; we encourage you to wear your seat belt, if you smoke; quite smoking, and we encourage family to use a protective helmet for bicycling and other sporting events that present an increased risk for head injury. IF YOUR SYMPTOMS WORSEN OR NEW SYMPTOMS DEVELOP, OR YOU HAVE CONCERNS ABOUT YOUR CONDITION; OR IF YOUR CONDITION WORSENS WHILE YOU ARE WAITING FOR YOUR FOLLOW UP APPOINTMENT; EITHER CONTACT YOUR PRIMARY CARE DOCTOR, THE PHYSICIAN WHOSE NAME AND NUMBER YOU WERE GIVEN, OR RETURN TO THE ED IMMEDIATELY. Scripts Naproxen (NAPROXEN) 375 Mg Tablet 1 TAB PO BID for pain, #20 TAB 0 Refills with food Prov: DAVID CHAPARRO 06/12/21 Orphenadrine Citrate (ORPHENADRINE CITRATE) 100 Mg Tablet.er 1 TAB PO BID, #20 TAB 0 Refills Prov: DAVID CHAPARRO 06/12/21 DAVID CHAPARRO Jun 12, 2021 13:00
== END 2021-06-12 13:05 | disposition home or self-care (01) ==
LOC: ER 11:22
DX: M54.50 Low back pain, unspecified (principal); J44.9 Chronic obstructive pulmonary disease, unspecified; I10 Essential (primary) hypertension; F17.200 Nicotine dependence, unspecified, uncomplicated; Z95.5 Presence of coronary angioplasty implant and graft; Z90.710 Acquired absence of both cervix and uterus; Z88.8 Allergy status to other drugs, medicaments and biological substances
CPT/HCPCS: 96372; 99284; J1885; J2360